=== PATIENT | female | born 1945 | race Caucasian/White ===

== ENCOUNTER 2021-08-21 10:41 | Emergency (ER) | payer SELFPAY ==
[2021-08-21 11:02] VITALS: BP 135/76; PULSE 79; RESP 18; TEMP 36.6; O2SAT 99; BMI 29.2
== END 2021-08-21 17:17 | disposition left against medical advice (07) ==
PROVIDERS: Emergency Provider Emergency Medicine
DX: M54.9 Dorsalgia, unspecified (principal)
CPT/HCPCS: 99281; 99282